=== PATIENT | female | born 1950 | race Caucasian/White ===

== ENCOUNTER 2018-11-13 06:35 | Day surgery (SDC) | payer OTHER, MEDICAID ==
[2018-11-13] MEDS ORDERED: SIMETHICONE 40 MG/0.6 ML ML ONE (07:16)
[2018-11-13] MEDS: MEPERIDINE HCL/PF 100 MG/ML AMP ONE ×3 (08:23→08:36)
[2018-11-13] MEDS: MIDAZOLAM HCL 5 MG/5 ML VIAL ONE ×4 (08:23→08:38)
[2018-11-13 11:44] VITALS: BP_SYST 124
== END 2018-11-13 10:00 | disposition home or self-care (01) ==
LOC: SMU 06:35 → SDS 06:35
PROVIDERS: ATTEND Internal Medicine Gastroenterology
DX: D12.0 Benign neoplasm of cecum (principal); D12.3 Benign neoplasm of transverse colon; K57.30 Diverticulosis of large intestine without perforation or abscess without bleeding; K64.4 Residual hemorrhoidal skin tags; Z79.899 Other long term (current) drug therapy; I12.9 Hypertensive chronic kidney disease with stage 1 through stage 4 chronic kidney disease, or unspecified chronic kidney disease; N18.9 Chronic kidney disease, unspecified; D64.9 Anemia, unspecified; Z85.3 Personal history of malignant neoplasm of breast; Z68.32 Body mass index [BMI] 32.0-32.9, adult
CPT/HCPCS: 45385; 88305; J2175; J2250; J7030; 45384